=== PATIENT | female | born 1975 | race Caucasian/White ===

== ENCOUNTER 2021-07-08 09:22 | Outpatient (CLI) | payer OTHER | END 2021-07-08 09:23 | disposition home or self-care (01) | LOC: NM 09:22 | PROVIDERS: ATTEND Family Medicine | DX: E21.3 Hyperparathyroidism, unspecified (principal) | CPT/HCPCS: 78072; A9500 ==

== ENCOUNTER 2022-12-16 07:38 | Outpatient (CLI) | payer OTHER ==
[2022-12-16] MEDS ORDERED: Iopamidol 370 76% 100 ML VIAL ONE (12:34)
== END 2022-12-16 07:39 | disposition home or self-care (01) ==
LOC: CT 07:38 → EDSTATUS 08:30
PROVIDERS: ATTEND Family Medicine
DX: E21.5 Disorder of parathyroid gland, unspecified (principal)
CPT/HCPCS: 70492; Q9967